=== PATIENT | male | born 1965 | race Caucasian/White ===

== ENCOUNTER 2018-06-15 18:15 | Emergency (ER) | payer MEDICARE, MEDICAID ==
--- NOTE | 2018-06-15 19:08 | ED Physician Chart ---
ED Chief Complaint/HPI - Patient Information Date Seen:: 06/15/18 Time Seen:: 18:30 Chief Complaint:: URI History of Present Illness:: THIS IS A 53 YO MALE WHO IS CONCERNED ABOUT HAVING BRONCHITIS AND WANTS ANTIBIOTICS FOR HIS URI SYMPTOM OF COUGH, SPUTUM, FEVER AND CHEST CONGESTION. HE STATES THAT HE HAS NOT OTHER MEDICAL PROBLEMS AND DOES NOT WANT TO HAVE ANY LAB TEST OR X-RAYS. Allergies:: Allergies Allergy/AdvReac Type Severity Reaction Status Date / Time No Known Allergies Allergy Verified 06/15/18 18:28 Vitals:: Vital Signs - 8 hr 06/15/18 06/15/18 18:28 18:40 Temp 98.3 F 98.3 F HR 90 90 RR 16 16 BP 134/76 134/76 O2 Sat % 97 97 Historian:: Patient Review:: Nurse's Note Reviewed ED Review of Systems - Review of Systems General/Constitutional: Fever, No chills, No weight loss, No weakness, No diaphoresis, No edema, No loss of appetite Skin: No skin lesions, No rash, No bruising Head: No headache, No light-headedness Eyes: No loss of vision, No pain, No diplopia ENT: No earache, Nasal drainage, Sore throat, No tinnitus Neck: No neck pain, No swelling, No thyromegaly, No stiffness, No mass noted Cardio Vascular: No chest pain, No palpitations, No PND, No orthopnea, No edema Pulmonary: No SOB, Cough, Sputum, No wheezing GI: No nausea, No vomiting, No diarrhea, No pain, No melena, No hematochezia, No constipation, No hematemesis G/U: No dysuria, No frequency, No hematuria Musculoskeletal: No bone or joint pain, No back pain, No muscle pain Endocrine: No polyuria, No polydipsia Psychiatric: No prior psych history, No depression, No anxiety, No suicidal ideation Hematopoietic: No bruising, No lymphadenopathy Allergic/Immuno: No urticaria, No angioedema Neurological: No syncope, No focal symptoms, No weakness, No paresthesia, No headache, No seizure, No dizziness, No confusion, No vertigo ED Past Medical History - Past Medical History Obtainable: Yes Past Medical History: No significant medical hx Family History: None Social History: Non Smoker, No Alcohol, No Drug Use Surgical History: None Psychiatricy History: None Medication: Reviewed Family Medical History - Family Member Mother History Unknown: Yes Living Status: ED Physical Exam - Physical Examination General/Constitutional: Awake, Well-developed, well-nourished, Alert, No distress, GCS 15, Non-toxic appearing, Ambulatory Head: Atraumatic Eyes: Lids, conjuctiva normal, PERRL, EOMI Skin: Nl inspection, No rash, No skin lesions, No ecchymosis, Well hydrated, No lymphadenopathy ENMT: External ears, nose nl, Nasal exam nl, Lips, teeth, gums nl, Oropharynx nl (POSTERIOR PHARYNX IS RED AND SWOLLEN) Neck: Nontender, Full ROM w/o pain, No JVD, No nuchal rigidity, No bruit, No mass, No stridor Respiratory: Nl effort/Exclusion, Clear to Auscultation, No Wheeze/Rhonchi/ Rales (THERE ARE BILATERAL RHONCHI HEARD ) Cardio Vascular: RRR, No murmur, gallop, rubs, NL S1 S2 GI: No tenderness/rebounding/guarding, No organomegaly, No hernia, Normal BS's, Nondistended, No mass/bruits, No McBurney tenderness : No CVA tenderness Extremities: No tenderness or effusion, Full ROM, normal strength in all extremities, No edema, Normal digits & nails Neuro/Psych: Alert/oriented, DTR's symmetric, Normal sensory exam, Normal motor strength, Judgement/insight normal, Mood normal, Normal gait, No focal deficits Misc: Normal back, No paraspinal tenderness ED Assessment - Assessment General Assessment: BRONCHITIS PHARYNGITIS ED Septic Shock - . Is Septic Shock (SBP<90, OR Lactate>4 mmol\L) present?: No - <6hrs of presentation: Vital Signs: Vital Signs - 8 hr 06/15/18 06/15/18 18:28 18:40 Temp 98.3 F 98.3 F HR 90 90 RR 16 16 BP 134/76 134/76 O2 Sat % 97 97 ED Reassessment (Disposition) - Reassessment Reassessment Condition:: Unchanged - Diagnosis Diagnosis:: PHARYNGITIS BRONCHITIS - Aftercare/Follow up Instructions Aftercare/Follow-Up Instructions:: Counseled pt regarding lab results/diagnosis & need follow up, Refer to Discharge Instructions, Counseled pt & family regarding lab results/diagnosis & need follow up Medication Prescribed:: [id number], PREDNISONE - Patient Disposition Discharge/Transfer:: Home Condition at Disposition:: Unchanged
== END 2018-06-15 18:54 | disposition home or self-care (01) ==
LOC: ER 18:15
DX: J40 Bronchitis, not specified as acute or chronic (principal); J02.9 Acute pharyngitis, unspecified
CPT/HCPCS: Z7502